=== PATIENT | male | born 1980 | race Caucasian/White ===

== ENCOUNTER 2024-12-12 03:49 | Emergency (ER) | payer OTHER, SELFPAY ==
[2024-12-12] VITALS (7 sets, daily range): BP systolic 142–174; BP diastolic 94–109; PULSE 79–93; RESP 16–18; TEMP 36.8; O2SAT 96–100; BMI 26.6
--- NOTE | 2024-12-12 03:49 | XR_ITS ---
PROCEDURE INFORMATION: Exam: XR Chest Exam date and time: 12/12/2024 3:42 AM Age: 44 years old Clinical indication: Shortness of breath; Additional info: Asthma, SOA TECHNIQUE: Imaging protocol: Radiologic exam of the chest. Views: 2 views. COMPARISON: No relevant prior studies available. FINDINGS: Lungs: Unremarkable. No consolidation. Pleural spaces: Unremarkable. No pleural effusion. No pneumothorax. Heart/Mediastinum: Unremarkable. No cardiomegaly. Bones/joints: Unremarkable. IMPRESSION: No acute findings.
--- NOTE | 2024-12-12 03:52 | HMH.EDGENADL ---
Discharge Plan Disposition Patient Disposition: Home, Self-Care Prescriptions Prescriptions: New prednisone 50 mg tablet 50 mg PO DAILY 5 Days Qty: 5 0RF No Action ibuprofen 800 mg tablet 800 mg PO DIRECTED citalopram 10 mg tablet 10 mg PO DIRECTED risperidone 4 mg tablet 4 mg PO DIRECTED ondansetron HCl 4 mg tablet 4 mg PO DIRECTED simvastatin 40 mg tablet 40 mg PO DIRECTED citalopram 20 mg tablet 20 mg PO DIRECTED benztropine 1 mg tablet 1 mg PO DIRECTED loperamide 2 mg Tablet 2 mg PO DIRECTED promethazine 25 mg Tablet 25 mg PO DIRECTED Fish Oil 1,000 mg Capsule 1,000 cap PO DIRECTED Referrals Follow up/Referrals: Dilshad Romero MD [Primary Care Provider, Family Practice] - See instructions Activity Restrictions/Add. Instructions Additional Instructions/Restrictions: Please take steroids as prescribed for treatment of asthma exacerbation. Please use albuterol inhaler as needed. Please follow-up with your primary care provider. Please return to the emergency department if you develop any new or worsening symptoms or become concerned for your health. Clinical Impressions Clinical Impression: Asthma with exacerbation Print Language Print Language: Yi Discharge ED Provider: Kory Mckeon General Adult HPI General Chief complaint: Shortness of Breath/Dyspnea Stated complaint: SOA Time Seen by Provider: 12/12/24 03:52 History of Present Illness HPI narrative: 44-year-old male with history of asthma presents for shortness of breath. He reports this been ongoing for the last few days and has been worsening. He does admit to smoking. He reports it is worse after smoking and worse with walking. He reports some mild chest pressure that has been intermittent for the last couple of days. He is not sure when the last time he had an asthma exacerbation was. Denies fever at home. Related Data Home Medications ?Medication ?Instructions ?Recorded ?Confirmed benztropine 1 mg tablet 1 mg PO DIRECTED 12/12/24 12/12/24 citalopram 10 mg tablet 10 mg PO DIRECTED 12/12/24 12/12/24 citalopram 20 mg tablet 20 mg PO DIRECTED 12/12/24 12/12/24 ibuprofen 800 mg tablet 800 mg PO DIRECTED 12/12/24 12/12/24 loperamide 2 mg tablet 2 mg PO DIRECTED 12/12/24 12/12/24 omega-3 fatty acids-vitamin E 1,000 cap PO DIRECTED 12/12/24 12/12/24 1,000 mg capsule ondansetron HCl 4 mg tablet 4 mg PO DIRECTED 12/12/24 12/12/24 promethazine 25 mg tablet 25 mg PO DIRECTED 12/12/24 12/12/24 risperidone 4 mg tablet 4 mg PO DIRECTED 12/12/24 12/12/24 simvastatin 40 mg tablet 40 mg PO DIRECTED 12/12/24 12/12/24 Previous Rx's ?Medication ?Instructions ?Recorded prednisone 50 mg tablet 50 mg PO DAILY 5 days #5 tabs 12/12/24 Allergies Allergy/AdvReac Type Severity Reaction Status Date / Time No Known Allergies Allergy Verified 12/12/24 04:03 [facility] Disclaimer: The information contained in this section may have been updated after the patient was seen, as this information can be updated by other users. Medical History (Updated 12/12/24 @ 04:27 by Indy Begum RN) Paranoid schizophrenia Social History Smoking Status: Current every day smoker alcohol intake: never current occupational status: other Travel in the last 8 weeks?: None ROS Obtained: Yes All systems reviewed & no additional complaints except as documented Physical Exam General General appearance: alert and in no apparent distress Head Head exam: atraumatic and normocephalic Eye Eye exam: Present normal appearance, PERRL and EOMI ENT ENT exam: Present normal oropharynx and normal external ear exam Neck Neck exam: Present normal inspection and full ROM Chest Chest inspection: Present normal inspection and symmetric chest wall rise; Absent tenderness Respiratory Respiratory exam: Present wheezes; Absent respiratory distress Cardiovascular Cardiovascular exam: Present regular rate and normal rhythm Abdominal Exam Abdominal exam: Present soft; Absent distention, tenderness or guarding Extremities Exam Extremities exam: Present normal inspection; Absent edema or joint swelling Back Exam Back exam: Present normal inspection; Absent tenderness Neurological Exam Neurological exam: Present alert and oriented X3; Absent motor sensory deficit Psychiatric Psychiatric exam: Present normal affect and normal mood Skin Skin exam: Present warm, dry and normal color Lymphatic Lymphatic Findings: no adenopathy Medical Decision Making Medical Records Medical records reviewed: Yes I reviewed the patient's medical records. Screening: Per USPSTF and CDC recommendations, given the prevalence of disease in our region, it is our hospital?s policy to screen for HIV and viral Hepatitis for all patients aged 18 and over and those with ongoing risk factors. Yehuda Inquiry Pt receiving controlled substance: No Yehuda was queried for this patient: No Vital Signs: 12/12/24 03:53 12/12/24 04:11 12/12/24 04:15 Temperature 98.2 F Temperature Source Oral Pulse Rate 92 H Pulse Rate [Left Radial] 93 H Respiratory Rate 16 Blood Pressure 161/102 H Blood Pressure [Right Arm] 174/109 H Blood Pressure Mean 115 Blood Pressure Mean [Right Arm] 130 Blood Pressure Source Blood Pressure Source [Right Arm] Automatic Cuff Blood Pressure Position Blood Pressure Position [Right Arm] Supine 02 Sat by Pulse Oximetry 98 100 Oxygen Delivery Method Room Air Room Air 12/12/24 04:15 12/12/24 04:16 12/12/24 04:30 Temperature Temperature Source Pulse Rate 86 83 Pulse Rate [Left Radial] Respiratory Rate Blood Pressure Blood Pressure [Right Arm] Blood Pressure Mean Blood Pressure Mean [Right Arm] Blood Pressure Source Blood Pressure Source [Right Arm] Blood Pressure Position Blood Pressure Position [Right Arm] 02 Sat by Pulse Oximetry 99 98 97 Oxygen Delivery Method Room Air Room Air Room Air 12/12/24 04:30 12/12/24 04:45 12/12/24 04:45 Temperature Temperature Source Pulse Rate 79 Pulse Rate [Left Radial] Respiratory Rate Blood Pressure 142/95 H 153/94 H Blood Pressure [Right Arm] Blood Pressure Mean 112 121 Blood Pressure Mean [Right Arm] Blood Pressure Source Blood Pressure Source [Right Arm] Blood Pressure Position Blood Pressure Position [Right Arm] 02 Sat by Pulse Oximetry 96 Oxygen Delivery Method Room Air 12/12/24 05:14 Temperature 98.2 F Temperature Source Oral Pulse Rate 79 Pulse Rate [Left Radial] Respiratory Rate 18 Blood Pressure 153/94 H Blood Pressure [Right Arm] Blood Pressure Mean Blood Pressure Mean [Right Arm] Blood Pressure Source Automatic Cuff Blood Pressure Source [Right Arm] Blood Pressure Position Supine Blood Pressure Position [Right Arm] 02 Sat by Pulse Oximetry Oxygen Delivery Method Room Air Lab Data Lab results reviewed: Yes I reviewed the patient's lab results. Lab Results 12/12/24 04:13: WBC 9.6, RBC 3.97 L, Hgb 13.5 L, Hct 36.3 L, MCV 91.4, MCH 34.0 H, MCHC 37.2 H, RDW 11.8, Plt Count 255, MPV 8.4, Neut % (Auto) 65.9, Lymph % (Auto) 24.7, [place] % (Auto) 7.2, Eos % (Auto) 1.6, Baso % (Auto) 0.3, Neut # (Auto) 6.3, Lymph # (Auto) 2.4, [place] # (Auto) 0.7, Eos # (Auto) 0.2, Baso # (Auto) 0.0, Sodium 128 L, Potassium 3.4 L, Chloride 95 L, Carbon Dioxide 25, Anion Gap 11.4, BUN < 2 L, Creatinine 0.50 L, Estimated Creat Clear 196, Estimated GFR 181, Est GFR ( Amer) 220, Glucose 104 H, Calcium 8.7, Total Bilirubin 0.8, AST 31, ALT 29, Alkaline Phosphatase 58, Troponin I < 0.01, Total Protein 7.4, Albumin 5.3 H, HCV Ab DENISE w/Rflx PCR Qn Negative, HIV Ag/Ab Combo Qual Negative 12/12/24 04:13 12/12/24 04:13 Orders (Tests/Meds): ED MEDICATIONS Generic Name Dose Route Start Last Admin Trade Name Freq PRN Reason Stop Dose Admin Albuterol Sulfate 2 puff 12/12/24 04:34 12/12/24 04:52 Albuterol-Hfa 90mcg/Puff Inhaler 8gm IH 01/11/25 04:33 2 puff Q4HP PRN Administration Shortness Of Breath Discontinued Medications Generic Name Dose Route Start Last Admin Trade Name Freq PRN Reason Stop Dose Admin Albuterol/Ipratropium 3 ml 12/12/24 03:49 12/12/24 04:08 Ipratropium/Albuterol 3 Ml Neb 12/12/24 03:50 3 ml ONCE ONE Administration Methylprednisolone Sodium Succinate 125 mg 12/12/24 03:49 12/12/24 04:07 Methylprednisolone Sod Succ 125mg Vial IV 12/12/24 03:50 125 mg ONCE ONE Administration Miscellaneous 1 unit 12/12/24 04:34 12/12/24 04:52 Aerochamber/Optihaler MC 12/12/24 04:35 1 unit ONCE ONE Administration ORDERS Category Date Time Status CXR 2 view (NOT portable) [XR chest 2V] Stat Exams 12/12/24 03:49 Completed CBC w/Auto Diff [Complete Blood Count Auto Diff] Stat Lab 12/12/24 04:13 Completed CMP [Comprehensive Metabolic Panel] Stat Lab 12/12/24 04:13 Results HIV Combo Stat Lab 12/12/24 04:13 Completed Hepatitis C Ab Qual. W/ RFX Stat Lab 12/12/24 04:13 Completed Troponin I Q3H Lab 12/12/24 04:13 Results Troponin I Q3H Lab 12/12/24 07:00 Ordered Medical Decision Narrative: 44-year-old male with history of asthma presents for shortness of breath for the last couple of days. History was obtained via interactive discussion with patient, EMS, chart review. On arrival, patient is [afebrile, hemodynamically stable, satting appropriately, alert, oriented x4, GCS 15], moving all extremities spontaneously. Full physical exam performed and significant for mild wheezing bilaterally. Differential includes but is not limited to asthma exacerbation, viral/bacterial pneumonia, URI. Patient was given DuoNeb and steroids for treatment of asthma exacerbation. Given mild chest pressure, we will assess with EKG and single set of blood work On re-evaluation, patient reports some improvement. Laboratory workup independently interpreted by me and significant for negative troponin, no significant electrolyte derangement.. Imaging independently interpreted by me and significant for clear lungs bilaterally without evidence of bacterial pneumonia. See radiology read for full review of final results. EKG independently interpreted by me and significant for sinus rhythm, ventricular rate of 82, incomplete right bundle branch block. Interpreted at 0406. Given patient history, exam and workup, patient's presentation most likely represents asthma exacerbation. Interactive discussion was had with patient for his presentation. He was discharged with a albuterol inhaler as well as steroids. Procedures Risk/Benefits of Procedure(s) Were Explained: Yes Critical Care Critical Care Time Critical Care Time: No
--- NOTE | 2024-12-12 04:06 | ECG_ITS ---
APPROVED REPORT Exam: Resting ECG HR:82 bpm ECG Measurements Heart Rate 82 AXES TN 157 P 71 QRSd 98 QRS 125 QT 371 T 26 QTc 410 Conclusion SINUS RHYTHM INCOMPLETE RIGHT BUNDLE BRANCH BLOCK [90+ ms QRS DURATION, TERMINAL R IN V1/V2, 40+ ms S IN I/aVL/V4/V5/V6] POSSIBLE RIGHT VENTRICULAR HYPERTROPHY [SOME/ALL OF: PROMINENT R IN V1, LATE TRANSITION, RAD, EMY, SSS] SEPTAL MYOCARDIAL INFARCTION , OF INDETERMINATE AGE [40+ ms Q WAVE IN V1/V2] ABNORMAL ECG UNCONFIRMED REPORT Electronically signed by : HERMAN JUAN, 12/14/2024 02:14:14
[2024-12-12] MEDS: METHYLPREDNISOLONE SOD SUCC 125MG VIAL 125 MG IV (04:07)
[2024-12-12] MEDS: IPRATROPIUM/ALBUTEROL 3 ML NEB IH (04:08)
--- OUTSIDE RECORDS SUMMARY | 2024-12-12 04:09 | XMS_ITS ---
Author Organization Unknown ENCOUNTERS Encounter Performer Location Date Diagnosis Diagnosis Status Emergency [facility] [address] [place] [address] [id number] Pre Admit [facility] [address] [place] [address] [id number] *Note: Encounters from your own facility or health system may be excluded. Allergies, Adverse Reactions, Alerts Allergen Type Severity Identification Date Medications Name Date Quantity Days Supplied GPI Number
[2024-12-12 04:25] LABS: Hematocrit 36.3 % (42.0-52.0); Hemoglobin 13.5 g/dL (14.1-18.0); Immature Granulocytes % 0.3 %; Mean Corpuscular HGB Conc 37.2 g/dL (31.8-35.4); Mean Corpuscular Hemoglobin 34.0 pg (27.0-31.2); Mean Corpuscular Volume 91.4 fl (80-94); Nucleated Red Blood Cells % 0 %; Platelet Count 255 K/mm3 (142-424); Red Blood Count 3.97 M/mm3 (4.60-6.20); Red Cell Distribution Width-SD 39.5 fL; White Blood Count 9.6 K/mm3 (4.8-10.8)
[2024-12-12 04:33] LABS: Chloride 95 mmol/L (98-107); Potassium 3.4 mmoL/L (3.5-5.1); Sodium 128 mmol/L (136-145)
[2024-12-12 04:36] LABS: Alanine Aminotransferase 29 U/L (12-78); Alkaline Phosphatase 58 U/L (38-126); Aspartate Amino Transferase 31 U/L (17-59); Bilirubin,Total 0.8 mg/dl (0.2-1.3); Carbon Dioxide 25 mmol/L (22.0-30.0); Creatinine Clearance Estimated 196 mL/min (50-200); Creatinine,Serum 0.50 mg/dl (0.66-1.25); Estimated Glomerular Filt Rate 181 ml/min (>60); GFR (African American) 220 ML/MIN (>60); Total Protein,Serum 7.4 g/dl (6.3-8.2)
[2024-12-12 04:37] LABS: Calcium 8.7 mg/dl (8.4-10.2); Glucose 104 mg/dl (74-100)
[2024-12-12 04:49] LABS: Anion Gap 11.4 mEq/L (5-15); Blood Urea Nitrogen < 2 mg/dl (9-20); Troponin I < 0.01 ng/ml (0.00-0.034)
[2024-12-12] MEDS: AEROCHAMBER/OPTIHALER 1 UNIT MC (04:52)
[2024-12-12] MEDS: ALBUTEROL-HFA 90MCG/PUFF INHALER 8GM 2 PUFF IH (04:52)
[2024-12-12 05:25] LABS: Hepatitis C Ab Qual. W/ RFX NEGATIVE (Negative)
--- NOTE | 2024-12-12 05:25 | PC.NURSE ---
Call made to Pradeep Chavira to inform and update on patient condition and that patient is ready for discharge. Staff at [facility] informed that they were unable to pick patient up due to all staff at facility not having a vehicle. Staff informed that he would have to call around to see if he could get transportation to hospital.
--- NOTE | 2024-12-12 06:05 | PC.NURSE ---
Contacted Dietary r/t breakfast tray
[2024-12-12 07:09] LABS: Albumin Level 5.3 g/dl (3.5-5.0); Albumin/Globulin Ratio 2.5 (1.1-1.8); Globulin 2.1 g/dL (1.3-3.2)
== END 2024-12-12 08:24 | disposition home or self-care (01) ==
PROVIDERS: Emergency Provider Emergency Medicine; PCP Emergency Medicine
DX: J45.901 Unspecified asthma with (acute) exacerbation (principal); F17.210 Nicotine dependence, cigarettes, uncomplicated
CPT/HCPCS: 71046; 80053; 84484; 85025; 86803; 87389; 93005; 96374; 99284; 99285; J2919